=== PATIENT | male | born 1965 | race Caucasian/White ===

== ENCOUNTER 2016-10-22 08:50 | Emergency (ER) | payer OTHER ==
[~2016-10-22] VITALS: Ht 167.6 cm; Wt 95.3 kg
[2016-10-22 09:57] VITALS: BP 144/97
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
== END 2016-10-22 10:41 | disposition home or self-care (01) ==
LOC: ER 08:50
DX: S60.221A Contusion of right hand, initial encounter (principal); E11.9 Type 2 diabetes mellitus without complications; V43.52XA Car driver injured in collision with other type car in traffic accident, initial encounter; Y93.I9 Activity, other involving external motion; Y92.410 Unspecified street and highway as the place of occurrence of the external cause; Y99.8 Other external cause status
CPT/HCPCS: 73130; 99284